=== PATIENT | male | born 1955 | race African-American/Black ===

== ENCOUNTER 2018-01-28 11:23 | Emergency (ER) | payer BC, OTHER ==
--- NOTE | 2018-01-28 11:51 | ER Document Report ---
ED Medical Screen (RME) - General Chief Complaint: Abdominal Pain >50 Stated Complaint: ABDOMINAL PAIN Time Seen by Provider: 01/28/18 11:45 TRAVEL OUTSIDE OF THE [place] IN LAST 30 DAYS: No - HPI Notes: 01/28/18 11:50 Patient is a 62-year-old male that presents to the emergency department for chief complaint of left-sided flank pain. Patient reports a crampy throbbing pain on his left side that radiates from his back into his left lower quadrant. The pain has been present for the last 12 days. He states it was initially intermittent but has become more constant. It is worse with position changes. He denies any fevers or vomiting. He states he had similar pain 15 years ago after lifting a heavy object but was never given a specific diagnosis to what caused his pain back then. He also states that he feels like his left side of his abdomen is "bulging". ROS: GENERAL: Denies fever of chills CV: Denies chest pain PHYSICAL EXAMINATION: GENERAL: Well-appearing, well-nourished and in no acute distress. HEAD: Atraumatic, normocephalic. EYES: Pupils equal round extraocular movements intact, conjunctiva are normal. ENT: Nares patent NECK: Normal range of motion LUNGS: No respiratory distress Musculoskeletal: Normal range of motion NEUROLOGICAL: Normal speech, normal gait. PSYCH: Normal mood, normal affect. MDM: Patient seen and examined for rapid initial assessment. Vital signs reviewed. A comprehensive ED assessment and evaluation of the patient, analysis of test results and completion of the medical decision making process will be conducted by additional ED providers. - Related Data Allergies/Adverse Reactions: codeine [Codeine] Allergy (Verified 01/28/18 11:24) lisinopril [Lisinopril] Allergy (Verified 01/28/18 11:24) verapamil [Verapamil] Allergy (Verified 01/28/18 11:24) Past Medical History - Past Medical History Cardiac Medical History: Reports: Hx Coronary Artery Disease, Hx Hypercholesterolemia, Hx Hypertension Endocrine Medical History: Reports: Hx Diabetes Mellitus Type 2 - metformin Renal/ Medical History: Denies: Hx Peritoneal Dialysis Past Surgical History: Reports: Hx Cardiac Catheterization - 5 stents, Hx Coronary Stent Physical Exam - Vital signs Vitals: Temp Pulse Resp BP Pulse Ox 98.7 F 63 16 147/79 H 97 01/28/18 11:28 12/11/18 11:28 01/28/18 11:28 01/28/18 11:28 01/28/18 11:28 Course - Vital Signs Vital signs: Temp Pulse Resp BP Pulse Ox 98.7 F 63 16 147/79 H 97 01/28/18 11:28 01/28/18 11:28 01/28/18 11:28 01/28/18 11:28 01/28/18 11:28
[2018-01-28 12:29] LABS: APPEARANCE,URINE CLEAR; COLOR,URINE YELLOW; GLUCOSE, URINE NEGATIVE (NEGATIVE)
[2018-01-28 12:30] LABS: BILIRUBIN,URINE NEGATIVE (NEGATIVE); KETONES,URINE NEGATIVE (NEGATIVE); LEUKOCYTE ESTERASE,URINE NEGATIVE (NEGATIVE); NITRITE,URINE NEGATIVE (NEGATIVE); PROTEIN,URINE NEGATIVE (NEGATIVE); URINE SPECIFIC GRAVITY 1.017; UROBILINOGEN,URINE NEGATIVE mg/dL (<2.0)
--- NOTE | 2018-01-28 12:48 | ER Document Report ---
ED GI/ - General Chief Complaint: Abdominal Pain >50 Stated Complaint: ABDOMINAL PAIN Time Seen by Provider: 01/28/18 11:45 Mode of Arrival: Ambulatory Information source: Patient Notes: Patient presents complaining of left-sided abdominal pain and left flank pain. Patient states that he has had pain for about the past 12 days that worsened over the past 5 days. Patient states that the pain is off and on and changes in severity. Patient denies any fever nausea, vomiting or diarrhea. Patient feels as though he has a bulge to the left side of his abdomen. Patient does report constipation symptoms last week but states that has improved. Patient denies any urinary symptoms. Patient denies any history of diverticulitis TRAVEL OUTSIDE OF THE [place] IN LAST 30 DAYS: No - HPI Patient complains to provider of: Abdominal pain, Flank pain. No: Vomiting Onset: Other - 12 days Timing/Duration: Worse Quality of pain: Achy, Sharp Pain Level: 3 Location: LLQ, Left flank Associated symptoms: denies: Blood in stool, Chest pain, Diarrhea, Fever, Loss of appetite, Nausea, Urinary hesitancy, Urinary frequency, Urinary retention, Urinary urgency, Vomiting Exacerbated by: Supine Relieved by: Sitting Similar symptoms previously: No Recently seen / treated by doctor: No - Related Data Allergies/Adverse Reactions: codeine [Codeine] Allergy (Verified 01/28/18 11:24) lisinopril [Lisinopril] Allergy (Verified 01/28/18 11:24) verapamil [Verapamil] Allergy (Verified 01/28/18 11:24) Past Medical History - General Information source: Patient - Social History Smoking Status: Never Smoker Frequency of alcohol use: None Drug Abuse: None Family History: None Patient has suicidal ideation: No Patient has homicidal ideation: No - Past Medical History Cardiac Medical History: Reports: Hx Coronary Artery Disease, Hx Hypercholesterolemia, Hx Hypertension Endocrine Medical History: Reports: Hx Diabetes Mellitus Type 2 - metformin Renal/ Medical History: Denies: Hx Peritoneal Dialysis Past Surgical History: Reports: Hx Cardiac Catheterization - 5 stents, Hx Coronary Stent, Hx Orthopedic Surgery Review of Systems - Review of Systems Constitutional: No symptoms reported. denies: Fever, Recent illness EENT: No symptoms reported Cardiovascular: No symptoms reported. denies: Chest pain Respiratory: No symptoms reported. denies: Cough, Short of breath Gastrointestinal: Abdominal pain, Constipation - last week. denies: Diarrhea, Nausea, Vomiting, Poor appetite, Poor fluid intake Genitourinary: Flank pain. denies: Burning, Dysuria Male Genitourinary: No symptoms reported. denies: Testicular pain Musculoskeletal: Back pain Skin: No symptoms reported Hematologic/Lymphatic: No symptoms reported Neurological/Psychological: No symptoms reported Physical Exam - Vital signs Vitals: Temp Pulse Resp BP Pulse Ox 98.7 F 63 16 147/79 H 97 01/28/18 11:28 01/28/18 11:28 01/28/18 11:28 01/28/18 11:28 01/28/18 11:28 - General General appearance: Appears well, Alert In distress: None - HEENT Head: Normocephalic, Atraumatic Eyes: Normal Conjunctiva: Normal Nasal: Normal Mouth/Lips: Normal Mucous membranes: Normal Neck: Normal, Supple. No: Lymphadenopathy - Respiratory Respiratory status: No respiratory distress Chest status: Nontender Breath sounds: Normal. No: Rales, Rhonchi, Stridor, Wheezing Chest palpation: Normal - Cardiovascular Rhythm: Regular Heart sounds: S1 appreciated, S2 appreciated Murmur: No - Abdominal Inspection: Normal Distension: No distension Bowel sounds: Normal Tenderness: Tender - LLQ pain Organomegaly: No organomegaly - Back Back: Tender - Left lumbar lateral side. No: CVA tenderness - Extremities General upper extremity: Normal inspection, Nontender, Normal ROM General lower extremity: Normal inspection, Nontender, Normal ROM - Neurological Neuro grossly intact: Yes Cognition: Normal [place] Coma Scale Eye Opening: Spontaneous [place] Coma Scale Verbal: Oriented Matt Coma Scale Motor: Obeys Commands [place] Coma Scale Total: 15 - Psychological Associated symptoms: Normal affect, Normal mood - Skin Skin Temperature: Warm Skin Moisture: Dry Skin Color: Normal Course - Re-evaluation Re-evalutation: 01/28/18 15:50 pt requesting pain medication, has pain when supine for CT scan 01/28/18 16:58 Patient presently denies any pain symptoms at this time. Patient denies any nausea vomiting or diarrhea. Patient states he has had normal bowel movements for the past week. Patient states had a bowel movement each day. Patient states that he has had a colonoscopy in February of either this year last year and states that they only found 2 polyps which they removed. Patient denies any history of inflammatory bowel disease, Crohn's or colitis. Consulted with Dr. Panchal regarding patient CT report findings, discussed vitals as well as laboratory test results. Recommend outpatient follow-up with primary doctor so that he can have a repeat colonoscopy for further evaluation. 01/28/18 17:05 Discussed abnormal findings of CT scan report with patient. Patient was given a copy of his report and encouraged to follow-up with his primary doctor so that he can get referral to GI, general surgery as well as urology for further evaluation of possible stricture, umbilical hernia as well as incidental right renal lesion. Patient currently denies any abdominal tenderness. No concern for bowel obstruction at this time given patient's had normal bowel movements without nausea vomiting or diarrhea and his pain is manageable at this time. - Vital Signs Vital signs: Temp Pulse Resp BP Pulse Ox 98.2 F 71 16 131/73 H 100 01/28/18 17:10 01/28/18 17:10 01/28/18 17:10 01/28/18 17:10 01/28/18 17:10 - Laboratory Result Diagrams: 01/28/18 13:30 01/28/18 13:30 Laboratory results interpreted by me: 01/28/18 01/28/18 13:30 13:30 RDW 15.0 H Eosinophils % 8.0 H Total Protein 8.5 H Lipase 517.6 H Labs- Entire Visit 01/28/18 01/28/18 01/28/18 12:01 13:30 13:30 WBC 7.2 RBC 4.54 Hgb 13.5 Hct 39.7 MCV 88 MCH 29.7 MCHC 34.0 RDW 15.0 H Plt Count 301 Seg Neutrophils % 45.8 Lymphocytes % 36.1 Monocytes % 8.9 Eosinophils % 8.0 H Basophils % 1.2 Absolute Neutrophils 3.3 Absolute Lymphocytes 2.6 Absolute Monocytes 0.6 Absolute Eosinophils 0.6 Absolute Basophils 0.1 Sodium 141.0 Potassium 4.2 Chloride 101 Carbon Dioxide 28 Anion Gap 12 BUN 15 Creatinine 1.01 Est GFR ( Amer) > 60 Est GFR (Non-Af Amer) > 60 Glucose 95 Calcium 10.0 Total Bilirubin 0.4 Direct Bilirubin 0.2 Neonat Total Bilirubin Not Reportable Neonat Direct Bilirubin Not Reportable Neonat Indirect Bili Not Reportable AST 43 ALT 53 Alkaline Phosphatase 86 Total Protein 8.5 H Albumin 4.8 Lipase 517.6 H Urine Color YELLOW Urine Appearance CLEAR Urine pH 5.0 Ur Specific [place] 1.017 Urine Protein NEGATIVE Urine Glucose (UA) NEGATIVE Urine Ketones NEGATIVE Urine Blood NEGATIVE Urine Nitrite NEGATIVE Urine Bilirubin NEGATIVE Urine Urobilinogen NEGATIVE Ur Leukocyte Esterase NEGATIVE Urine WBC (Auto) 0 Urine RBC (Auto) 2 Urine Mucus (Auto) OCC Urine Ascorbic Acid NEGATIVE - Diagnostic Test Radiology reviewed: Reports reviewed Discharge - Discharge Clinical Impression: Lesion of right nikolski kidney Umbilical hernia Qualifiers: Obstruction and gangrene presence: without obstruction or gangrene Qualified Code(s): K42.9 - Umbilical hernia without obstruction or gangrene Abdominal pain Qualifiers: Abdominal location: left lower quadrant Qualified Code(s): R10.32 - Left lower quadrant pain Condition: Stable Disposition: HOME, SELF-CARE Instructions: Abdominal Pain ([facility]), Growth or Mass, Pending Workup ([facility]), Umbilical Hernia ([facility]) Additional Instructions: Return immediately for any new or worsening symptoms Followup with your primary care provider, call tomorrow to make a followup appointment Follow-up with your primary care provider, they will need to refer you for a repeat colonoscopy, to further evaluate findings noted on your CT scan today. CT scan showed an area concerning for a right renal lesion. Your primary doctor can make a referral to urology for further evaluation. Your scan also showed an umbilical hernia. You can follow-up with general surgery for definitive management of this finding. Again your primary doctor can make this referral for you as well. Referrals: [facility] [Provider Group] - Follow up tomorrow RAHEEM RUTH MD [ACTIVE STAFF] - Follow up as needed TONE DUNCAN MD [NO LOCAL MD] - Follow up as needed [facility] [Provider Group] - Follow up as needed
[2018-01-28 13:59] LABS: ABSOLUTE BASOPHILS # (AUTO) 0.1 10^3/uL (0.0-0.2); ABSOLUTE EOSINOPHILS # (AUTO) 0.6 10^3/uL (0.0-0.6); ABSOLUTE LYMPHOCYTES (AUTO) 2.6 10^3/uL (0.5-4.7); ABSOLUTE MONOCYTES (AUTO) 0.6 10^3/uL (0.1-1.4); ABSOLUTE NEUT (AUTO) 3.3 10^3/uL (1.7-8.2); BASOPHILS % (AUTO) 1.2 % (0-2); HEMATOCRIT 39.7 % (37.9-51.0); HEMOGLOBIN 13.5 g/dL (13.5-17.0); LYMPHOCYTES % (AUTO) 36.1 % (13-45); MEAN CORPUSCULAR HEMOGLOBIN 29.7 pg (27.0-33.4); MEAN CORPUSCULAR VOLUME 88 fl (80-97); MONOCYTES % (AUTO) 8.9 % (3-13); PLATELET COUNT 301 10^3/uL (150-450); RED BLOOD COUNT 4.54 10^6/uL (4.35-5.55); SEGMENTED NEUTROPHILS % (AUTO) 45.8 % (42-78); TOTAL CELLS COUNTED % (AUTO) 100 %; WHITE BLOOD COUNT 7.2 10^3/uL (4.0-10.5)
[2018-01-28 14:21] LABS: ALANINE AMINOTRANSFERASE 53 U/L (21-72); ALBUMIN 4.8 g/dL (3.5-5.0); ALKALINE PHOSPHATASE 86 U/L (38-126); ANION GAP 12 (5-19); ASPARTATE AMINO TRANSFERASE 43 U/L (17-59); BILIRUBIN,DIRECT 0.2 mg/dL (0.0-0.4); BILIRUBIN,TOTAL 0.4 mg/dL (0.2-1.3); BLOOD UREA NITROGEN 15 mg/dL (7-20); CARBON DIOXIDE 28 mmol/L (22-30); CHLORIDE 101 mmol/L (98-107); GLUCOSE 95 mg/dL (75-110); LIPASE 517.6 U/L (23-300); POTASSIUM 4.2 mmol/L (3.6-5.0); TOTAL PROTEIN 8.5 g/dL (6.3-8.2)
[2018-01-28] MEDS ORDERED: FENTANYL CITRATE INJ/PF 100 MCG/2 ML AMPUL IV ONE (15:50)
--- NOTE | 2018-01-28 16:31 | RADIOLOGY REPORT (SQ) ---
EXAM DESCRIPTION: CT ABD/PELVIS WITH IV ORAL COMPLETED DATE/TIME: 01/28/2018 4:11 pm REASON FOR STUDY: LLQ pain COMPARISON: None. TECHNIQUE: CT scan of the abdomen and pelvis performed using helical scanning technique with dynamic intravenous contrast injection. No oral contrast. Images reviewed with lung, soft tissue, and bone windows. Reconstructed coronal and sagittal MPR images reviewed. Delayed images for evaluation of the urinary system also acquired. All images stored on PACS. All CT scanners at this facility use dose modulation, iterative reconstruction, and/or weight based d osing when appropriate to reduce radiation dose to as low as reasonably achievable (ALARA). [facility]: Dose Right [facility]: CareDose [facility]: Dose Right [facility]: Teradose 4D [facility]: [employer] CONTRAST TYPE AND DOSE: contrast/concentration: Isovue 350.00 mg/ml; Total Contrast Delivered: 100.0 ml; Total Saline Delivered: 72.0 ml RENAL FUNCTION: Creatinine -1.01 BUN=15 RADIATION DOSE: CT Rad equipment meets quality standard of care and radiation dose reduction techniq ues were employed. CTDIvol: 19.0 - 20.5 mGy. DLP: 2282 mGy-cm.. LIMITATIONS: None. FINDINGS: LOWER CHEST: No significant findings. No nodules or infiltrates. LIVER: Normal size. No masses. No dilated ducts. The hepatic and portal veins are patent. SPLEEN: Normal size. No focal lesions. PANCREAS: No masses. No significant calcifications. No adjacent inflammation or peripancreatic fluid collections. Pancreatic duct not dilated. GALLBLADDER: No identified stones by CT criteria. No inflammatory changes to suggest cholecystitis. ADRENAL GLANDS: No significant masses or asymmetry. RIGHT KIDNEY AND URETER: Too small to characterize hypoattenuated renal lesion. Extrarenal pelvis, normal anatomic variant. No significant calcifications. No hydronephrosis or hydroureter. LEFT KIDNEY AND URETER: No solid masses. No significant calcifications. No hydronephrosis or hydr oureter. AORTA AND VESSELS: No aneurysm. No dissection. Renal arteries, SMA, celiac without stenosis. RETROPERITONEUM: No retroperitoneal adenopathy, hemorrhage or masses. BOWEL AND PERITONEAL CAVITY: The mid-distal sigmoid colon is incompletely distended and collapsed. The possibility of a stricture is not entirely excluded. No evidence of obstruction. No free fluid. APPENDIX: Normal. PELVIS: The prostate gland measures 4.5 cm in diameter. No mass. No free fluid. Normal bladder. ABDOMINAL WALL: Fat containing umbilical hernia. No evidence of obstruction or strangulation. BONES: No significant or acute findings. OTHER: No other significant finding. IMPRESSION: 1. The mid-distal sigmoid colon is incompletely distended and is collapsed. The possib ility of a stricture is not entirely excluded. 2. Fat containing umbilical hernia. No evidence of obstruction or strangulation. 3. Too small to characterize hypoattenuated right renal lesion. TECHNICAL DOCUMENTATION: JOB ID: [id number] Quality ID # [id number]: Final reports with documentation of one or more dose reduction techniques (e.g., Au tomated exposure control, adjustment of the mA and/or kV according to patient size, use of iterative reconstruction technique) 2010 [employer]- All Rights Reserved Reading location - IP/workstation name: [email or web address]
[2018-01-28 17:37] VITALS: BP 131/73
== END 2018-01-28 17:10 | disposition home or self-care (01) ==
LOC: ER 11:23
DX: R10.32 Left lower quadrant pain (principal); K42.9 Umbilical hernia without obstruction or gangrene; N28.9 Disorder of kidney and ureter, unspecified; R10.9 Unspecified abdominal pain; M54.9 Dorsalgia, unspecified; I10 Essential (primary) hypertension; I25.10 Atherosclerotic heart disease of native coronary artery without angina pectoris; E11.9 Type 2 diabetes mellitus without complications; Z95.5 Presence of coronary angioplasty implant and graft; Z88.5 Allergy status to narcotic agent; Z88.8 Allergy status to other drugs, medicaments and biological substances
CPT/HCPCS: 99284; 96374; 36415; 83690; 85025; 80053; 81001; 74177; J3010